=== PATIENT | female | born 1990 | race Caucasian/White ===

== ENCOUNTER 2017-12-24 21:01 | Emergency (ER) | payer BC ==
[2017-12-24 21:20] VITALS: BP 130/86
--- NOTE | 2017-12-24 22:04 | UC ---
Throat Pain/Nasal Sonny HPI - HPI Summary HPI Summary: Per sales and marketing manager "c/o sore throat, fever, and body aches beginning yesterday afternoon. " -here w. 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 no sores on hands or feet but concerned thats what she has. - History of Current Complaint Chief Complaint: UCRespiratory Stated Complaint: SORE THROAT, FEVER Time Seen by Provider: 12/24/17 21:57 Hx Last Menstrual Period: 12/17/17 Pain Intensity: 5 - Allergies/Home Medications Allergies/Adverse Reactions: Allergies Allergy/AdvReac Type Severity Reaction Status Date / Time shellfish derived Allergy Hives Verified 12/24/17 21:16 Sulfa (Sulfonamide Allergy Hives Verified 12/24/17 21:16 Antibiotics) Home Medications: Home Medications Oral Contraceptive 1 tab PO DAILY 12/24/17 [History] PMH/Surg Hx/FS Hx/Imm Hx Previously Healthy: Yes - Surgical History Surgical History: Yes Surgery Procedure, Year, and Place: , 2015, [place]; T[place]illectomy, ~ 2006, [place] Ear Tubes [place] a child - Family History Known Family History: Positive: Hypertension - Social History Alcohol Use: Rare Substance Use Type: None Smoking Status (MU): Never Smoked Tobacco - Immunization History Most Recent Influenza Vaccination: Not the Season Review of Systems Constitutional: Negative Skin: Negative Eyes: Negative ENT: Sore Throat Respiratory: Negative Cardiovascular: Negative Gastrointestinal: Negative Genitourinary: Negative Motor: Negative Neurovascular: Negative Musculoskeletal: Negative Neurological: Negative Psychological: Negative Is Patient Immunocompromised?: No All Other Systems Reviewed And Are Negative: Yes Physical Exam Triage Information Reviewed: Yes Appearance: Well-Appearing, No Pain Distress, Well-Nourished Vital Signs: Initial Vital Signs Temp 98.7 F 12/24/17 21:13 Pulse 96 12/24/17 21:13 Resp 17 12/24/17 21:13 BP 130/86 12/24/17 21:13 Pulse Ox 100 12/24/17 21:13 Vital Signs Reviewed: Yes Eye Exam: Normal ENT: Positive: Pharyngeal erythema - with lesions on posterior palate. no exudate. airway patent. uvula midline, no swelling., TMs normal. Negative: Tonsillar swelling, Tonsillar exudate, Hoarse voice, Sinus tenderness Dental Exam: Normal Neck exam: Normal Neck: Positive: Supple, Nontender, Enlarged Nodes @ - mild left anterior cx LN, rubbery, tender, mobile. Respiratory: Positive: Lungs clear, Normal breath sounds, No respiratory distress, No accessory muscle use. Negative: Crackles, Rhonchi, Stridor, Wheezing Cardiovascular Exam: Normal Cardiovascular: Positive: RRR, No Murmur, Pulses Normal Abdomen Description: Positive: Nontender, Soft Musculoskeletal Exam: Normal Neurological Exam: Normal Psychological Exam: Normal Skin Exam: Normal Throat Pain/Nasal Course/Dx - Course Assessment/Plan: rapid strep neg. likley hsv w/ known exposure. - Differential Dx/Diagnosis Differential Diagnosis/HQI/PQRI: Laryngitis, Mononucleosis, Peritonsillar Abscess, Tonsillitis, URI Provider Diagnoses: Sore throat Discharge - Sign-Out/Discharge Documenting (check all that apply): Post-Discharge Follow Up - Discharge Plan Condition: Stable Disposition: HOME Patient Education Materials: Hand, Foot, and Mouth Disease (ED) Forms: *Work Release Referrals: Salvador Dawson MD [Primary Care Provider] - Additional Instructions: Hand foot mouth disease is your likely diagnosis based on the lesions on your throat. You may develop spots on your hands and feet. You are contagious from this. An out of work note ahs been given to you for 12/27 and 12/28. You should get clearance to return from your PCP. - Billing Disposition and Condition Condition: STABLE Disposition: HOME
== END 2017-12-24 22:12 | disposition home or self-care (01) ==
LOC: UCCORT 21:01
DX: J02.9 Acute pharyngitis, unspecified (principal); Z88.2 Allergy status to sulfonamides
CPT/HCPCS: 87651; 99211; G0463

== ENCOUNTER 2019-02-15 10:48 | Emergency (ER) | payer BC ==
[2019-02-15 11:08] VITALS: BP 132/81
--- NOTE | 2019-02-15 11:19 | UC ---
General HPI - HPI Summary HPI Summary: States she began with coughing 2 weeks ago, seemed to have started as allergies. Past few days has gotten worse. Developing coughing fits and SOB. Is using albuterol inhaler without spacer - does help for short period of time. mild congestion that is chronic. no fever. no n/v. back rib pain from all the coughing. no CP. Dry cough. no sore throat. Worse with talking. Meds; reviewed - History of Current Complaint Chief Complaint: UCRespiratory Stated Complaint: COUGH RIB PAIN Time Seen by Provider: 02/15/19 11:01 Hx Last Menstrual Period: 02/09/19 Pain Intensity: 0 - Allergy/Home Medications Allergies/Adverse Reactions: Allergies Allergy/AdvReac Type Severity Reaction Status Date / Time shellfish derived Allergy Hives Verified 02/15/19 11:03 Sulfa (Sulfonamide Allergy Hives Verified 02/15/19 11:03 Antibiotics) Home Medications: Home Medications Albuterol HFA INHALER* [Ventolin HFA Inhaler*] 2 puff INH Q4H PRN 02/15/19 [ History Confirmed 02/15/19] Beclomethasone 40 MCG MDI(NF) [Qvar 40 MCG MDI(NF)] 2 puff INH BID 02/15/19 [ History Confirmed 02/15/19] Beclomethasone Dipropionate [Qnasl] 1 spray DAILY 02/15/19 [History Confirmed ] Control Pill 1 tab DAILY 02/15/19 [History Confirmed 02/15/19] PMH/Surg Hx/FS Hx/Imm Hx Respiratory History: Asthma - Surgical History Surgical History: Yes Surgery Procedure, Year, and Place: , 2015, [place]; Tonsillectomy, ~ 2006, [place]; Ear Tubes as a child - Family History Known Family History: Positive: Hypertension - Social History Alcohol Use: None Substance Use Type: None Smoking Status (MU): Never Smoked Tobacco - Immunization History Most Recent Influenza Vaccination: Not the Season Review of Systems All Other Systems Reviewed And Are Negative: Yes Respiratory: Positive: Shortness Of Breath, Cough Physical Exam Triage Information Reviewed: Yes Appearance: Well-Appearing Vital Signs: Initial Vital Signs Temp 97.6 F 02/15/19 11:04 Pulse 72 02/15/19 11:04 Resp 16 02/15/19 11:04 BP 132/81 02/15/19 11:04 Pulse Ox 99 02/15/19 11:04 Vital Signs Reviewed: Yes ENT: Positive: Pharyngeal erythema, TMs normal, Other - post nasal drainage Neck: Positive: Supple, Nontender Respiratory: Positive: Other: - diminished breath sounds, dry persistent cough. b/l faint expiratory wheezing no increase in work of breathing Cardiovascular: Positive: RRR, No Murmur Course/Dx - Course Course Of Treatment: This is a 28 yr old with asthma and allergies here for persistent cough Assessment No respiratory distress or increase in work of breathing Plan Take albuterol inhaler with spacer every 4 hours while acutely sick and actively coughing then take as needed Start medrol dose pack as prescribed Tessalon pearls as needed for cough Recommend oral antihistamine - such as zyrtec or teja Continue nasal spray and inhalers If symptoms persist or worsen, recommend follow up with PCP or return to urgent care - Diagnoses Provider Diagnosis: Asthma exacerbation, Seasonal allergies Discharge - Sign-Out/Discharge Documenting (check all that apply): Patient Departure All imaging exams completed and their final reports reviewed: No Studies - Discharge Plan Condition: Good Disposition: HOME Prescriptions: Benzonatate CAP* [Tessalon 100 MG CAP*] 200 mg PO TID PRN #30 cap PRN Reason: Cough methylPREDNISolone [Medrol] 4 mg PO .SEE AMELIA INSTRUCTION #1 tab.ds.pk Spacer/Holding Chamber (NF) [Easivent CHAMBER (NF)] 1 applic INH Q4HR PRN #1 device PRN Reason: Cough Patient Education Materials: Asthma (ED) Referrals: Salvador Dawson MD [Primary Care Provider] - Additional Instructions: Take albuterol inhaler with spacer every 4 hours while acutely sick and actively coughing then take as needed Start medrol dose pack as prescribed Tessalon pearls as needed for cough Recommend oral antihistamine - such as zyrtec or teja Continue nasal spray and inhalers If symptoms persist or worsen, recommend follow up with PCP or return to urgent care - Billing Disposition and Condition Condition: GOOD Disposition: Home
== END 2019-02-15 11:24 | disposition home or self-care (01) ==
LOC: UCCORT 10:48
DX: J45.901 Unspecified asthma with (acute) exacerbation (principal); J30.2 Other seasonal allergic rhinitis
CPT/HCPCS: 99212; G0463